=== PATIENT | female | born 1965 | race Caucasian/White ===

== ENCOUNTER 2017-07-24 14:50 | Emergency (ER) | payer OTHER ==
[~2017-07-24] VITALS: Ht 165.1 cm; Wt 68.0 kg
[2017-07-24 15:07] VITALS: BP 137/73
== END 2017-07-24 16:35 | disposition home or self-care (01) ==
LOC: ER 14:51
DX: J06.9 Acute upper respiratory infection, unspecified (principal); F10.10 Alcohol abuse, uncomplicated
CPT/HCPCS: 71010; 99283; A4606; Z7610

== ENCOUNTER 2018-05-07 07:48 | Emergency (ER) | payer OTHER ==
[~2018-05-07] VITALS: Ht 165.1 cm; Wt 75.7 kg
--- NOTE | 2018-05-07 08:00 | NUR ---
PT BIB SELF, COMPLAINT OF FACIAL NUMBNESS SINCE LAST NIGHT. PATIENT IS ALERT AND ORIENTED X 4, VERBALLY RESPONSIVE. NO FACIAL DROOPING NOTED. ON ROOM AIR AND TOLERATED WELL. BREATHING EVENLY. SKIN WARM TO TOUCH AND WNL. KEPT COMFORTABLE. WILL CONTINUE TO MONITOR ACCORDINGLY.
[2018-05-07 08:30] LABS: BASOPHILS % (AUTO) 0.5 % (0.0-2.0); EOSINOPHILS % (AUTO) 3.2 % (0.0-6.0); HEMATOCRIT 43 % (33-45); HEMOGLOBIN 14.4 g/dL (11.5-14.8); LYMPHOCYTES # (AUTO) 1.1 /CMM (0.8-4.8); LYMPHOCYTES % (AUTO) 25.5 % (20.0-44.0); MEAN CORPUSCULAR HGB CONC 33 g/dl (31.0-36.0); MEAN CORPUSCULAR VOLUME 86 fL (82-100); MONOCYTES # (AUTO) 0.3 /CMM (0.1-1.30); MONOCYTES % (AUTO) 7.1 % (2.0-12.0); NEUTROPHILS # (AUTO) 2.7 /CMM (1.8-8.9); NEUTROPHILS % (AUTO) 63.7 % (43.0-81.0); PLATELET COUNT (AUTO) 249 /CMM (150-450); WHITE BLOOD COUNT (AUTO) 4.3 K/uL (4.3-11.0)
[2018-05-07] MEDS ORDERED: IV NS 0.9% 1,000 ML BAG IV ONE (08:30)
[2018-05-07 08:39] LABS: CALCIUM, SERUM 8.6 mg/dL (8.5-10.1); CREATININE 0.9 mg/dL (0.6-1.3); POTASSIUM 4.3 mmol/L (3.5-5.1)
[2018-05-07 08:50] LABS: INR 0.95 (0.87-1.13)
[2018-05-07] MEDS ORDERED: CT SWABBABLE VALVE TRANS SET 1 EA INFUS.SET MC ONE (08:54)
[2018-05-07] MEDS ORDERED: IOHEXOL-350 100 ML VIAL IV ONE (08:54)
[2018-05-07] MEDS ORDERED: IV NS 0.9% 250 ML IV ONE (08:55)
[2018-05-07] MEDS ORDERED: MORPHINE SULFATE INJ 2 MG/ML DISP.SYRIN ONE (09:03)
[2018-05-07] MEDS ORDERED: ONDANSETRON HCL/PF 4 MG/2 ML VIAL ONE (09:03)
--- NOTE | 2018-05-07 09:14 | NUR ---
TAKE OFF MAN CAEM AND PICKED UP THE PATIENT FOR CT.
[2018-05-07] MEDS ORDERED: MORPHINE SULFATE INJ 2 MG/ML DISP.SYRIN IV ONE (09:30)
[2018-05-07] MEDS ORDERED: ONDANSETRON HCL/PF 4 MG/2 ML VIAL IVP ONE (09:30)
[2018-05-07 10:00] VITALS: BP 142/88
--- NOTE | 2018-05-07 10:16 | NUR ---
IV removed. Catheter intact and site benign. Pressure and 4x4 applied to site. No bleeding noted.Patient discharged to home in stable condition. Written and verbal after care instructions given. Patient verbalizes understanding of instruction.
== END 2018-05-07 10:19 | disposition home or self-care (01) ==
LOC: ER 07:50
DX: R51 Headache (principal); R42 Dizziness and giddiness; F10.10 Alcohol abuse, uncomplicated; Y90.9 Presence of alcohol in blood, level not specified; Z96.639 Presence of unspecified artificial wrist joint; Z98.890 Other specified postprocedural states
CPT/HCPCS: 36415; 70496; 70498; 80048; 85025; 85652; 85730; 96361; 96374; 96375; 99285; A4606; J2270; J2405; J7030; J7050; Q9967; Z7610

== ENCOUNTER 2018-06-23 10:22 | Emergency (ER) | payer OTHER ==
[~2018-06-23] VITALS: Ht 165.1 cm; Wt 65.8 kg
[2018-06-23 10:39] VITALS: BP 156/74
[2018-06-23] MEDS ORDERED: ALBUTEROL FS 2.5 MG/3 ML VIAL.NEB ONE (10:47)
[2018-06-23] MEDS ORDERED: IPRATROPIUM NEB FS 0.5 MG/2.5 ML AMPUL.NEB ONE (10:47)
[2018-06-23] MEDS ORDERED: IPRATROPIUM NEB FS 0.5 MG/2.5 ML AMPUL.NEB NEB ONE (11:00)
[2018-06-23] MEDS ORDERED: ALBUTEROL FS 2.5 MG/3 ML VIAL.NEB NEB ONE (11:00)
[2018-06-23] MEDS ORDERED: PROMETHAZINE HCL SYRUP 6.25 MG/5 ML UDC PO SCH (11:30)
--- NOTE | 2018-06-23 11:38 | NUR ---
CALLED [facility] FOR STAT READ ON CXR
--- NOTE | 2018-06-23 11:49 | NUR ---
Updated by Dr Marshall for discharge. ACI given home ambulatory Stable
[2018-06-23] MEDS ORDERED: predniSONE 20 MG TABLET PO ONE (12:00)
[2018-06-23] MEDS ORDERED: predniSONE 20 MG TABLET ONE (12:07)
== END 2018-06-23 11:50 | disposition home or self-care (01) ==
LOC: ER 10:23
DX: J20.9 Acute bronchitis, unspecified (principal); B34.9 Viral infection, unspecified; F10.10 Alcohol abuse, uncomplicated; F17.200 Nicotine dependence, unspecified, uncomplicated; Y90.9 Presence of alcohol in blood, level not specified; Z96.639 Presence of unspecified artificial wrist joint; Z90.721 Acquired absence of ovaries, unilateral; Z98.86 Personal history of breast implant removal
CPT/HCPCS: 71045-TC; A4606; Z7610